=== PATIENT | female | born 1990 | race Caucasian/White ===

== ENCOUNTER 2022-01-24 14:13 | Emergency (ER) | payer OTHER, SELFPAY ==
[2022-01-24 14:40] VITALS: BP 138/87; PULSE 87; RESP 18; TEMP 36.6; O2SAT 98; BMI 23.1
[2022-01-24 14:59] LABS: Apearance,Urine Cloudy (Clear); Bilirubin,Urine Negative (Negative); Blood, Urine Trace (Negative); Color,Urine Dark Yellow (Yellow); Glucose,Urine (UA) Negative (Negative); Ketones,Urine Negative (Negative); PH,Urine 5.5 (5.0-8.5); Protein,Urine Negative (Negative); Specific Gravity, Urine 1.005 (1.005-1.030); UTC Leukocyte Esterase,Urine Negative (Negative); UTC Nitrate,Urine Positive (Negative); Urobilinogen,Urine 0.2 EU/dl (0.2)
--- NOTE | 2022-01-24 15:03 | HMH.EDUTC ---
[facility] [place] Disposition Clinical Impression: UTI (urinary tract infection) Qualifiers: Urinary tract infection type: site unspecified Hematuria presence: with hematuria Qualified Code(s): N39.0 - Urinary tract infection, site not specified Disposition: Home, Self-Care Condition on Discharge: Good Instructions: Urinary Tract Infection, DI for Urinary Tract Infection (UTI), Cefdinir Additional Instructions: *Increase fluids. Water not Soda or Tea *Start antibiotic immediately and be sure to take as ordered for the FULL length of time although you should start to see improvement over the next 48 hours *Be SURE to follow up anytime for new or worsening symptoms with your family doctor. AND in 48 hours for urine culture results with your family doctor, if you do not have a doctor then you may call back to the [facility] for urine culture results and further treatment. We do recommend that you choose and establish care with a Primary Care Physician. AND follow up with them in 10-14 days to repeat UA to ensure infection is resolved and blood no longer present *Be sure to let your PCP know that we sent urine cultures from the [facility] so they can follow up to ensure that you area the on the correct antibiotic Call your doctor office and make appointment for 48 hours (2 days from today) to follow up and get the results of your urine culture and further treatment Prescriptions: Cefdinir [Omnicef 300mg Capsule] 300 mg PO BID 7 Days #14 cap Transmission Status: Pending to [id number] Referrals: Provider,Referral, [Primary Care Provider] - As needed Time of Disposition: 15:06 Medical Decision Making - Armani Inquiry Pt receiving controlled substance: No Armani was queried for this patient: No Vital Signs: 01/24/22 14:40 Temperature 97.8 F Temperature Source Oral Pulse Rate [Right Brachial] 87 Respiratory Rate 18 Blood Pressure [Right Arm] 138/87 Blood Pressure Mean [Right Arm] 104 Blood Pressure Source [Right Arm] Automatic Cuff Blood Pressure Position [Right Arm] Sitting 02 Sat by Pulse Oximetry 98 Oxygen Delivery Method Room Air - Lab Data Lab results reviewed: Yes: I reviewed the patient's lab results. Lab Results 01/24/22 14:27: Urine Color Dark yellow, Urine Appearance Cloudy, Urine pH 5.5, Ur Specific [place] 1.005, Urine Protein Negative, Urine Glucose (UA) Negative, Urine Ketones Negative, Urine Blood Trace, Urine Nitrate Positive A, Urine Bilirubin Negative, Urine Urobilinogen 0.2, Ur Leukocyte Esterase Negative Orders (Tests/Meds): ORDERS Category Date Time Status Urine Culture Stat Micro 01/24/22 14:58 Ordered [facility] [place] HPI - General Stated complaint: possible UTI Time Seen by Provider: 01/24/22 15:03 Mode of Arrival: Ambulatory Source of Information: Patient Limitations: No Limitations Description of Symptoms (Recalled from Triage Doc. by RN): PATIENT C/O NAUSEA, DIARRHEA, AND TINGLING TO GROIN AREA SINCE THIS MORNING. REPORTS POSSIBLE UTI HEENT Symptoms (Recalled from RN notes): No Resp Symptoms (Recalled from RN notes): No Skin Symptoms (Recalled from RN notes): No MS Symptoms (Recalled from RN notes): No Functional Status (Recalled from RN notes): WNL - History of Present Illness Provider Complaint: Patient states that she gets frequent UTI with the same symptoms, States that she woke up this morning with diarrhea, nausea and feeling tingling in her private area States that when she has this she usually has a UTI so she came in to get checked prior to going home to [place] - Related Data Home Medications Medication Instructions Recorded Confirmed levonorgestrel INTRAUTERI each 02/20/19 03/24/20 fluconazole 150 mg tablet 150 mg PO tab 02/25/20 03/24/20 nitrofurantoin PO 02/25/20 03/24/20 monohydrate/macrocrystals 100 mg capsule Previous Rx's Medication Instructions Recorded Cefdinir [Omnicef 300mg Capsule] 300 mg PO BID 7 Days #14 cap 01/24/22 Allergies A
[2022-01-24 15:09] VITALS: BP 138/87; PULSE 87; RESP 18; TEMP 36.6; O2SAT 98
== END 2022-01-24 15:10 | disposition home or self-care (01) ==
PROVIDERS: Emergency Provider Nurse Practitioner
DX: N39.0 Urinary tract infection, site not specified (principal)
CPT/HCPCS: 81003; 87086; 99212; G0463